=== PATIENT | female | born 1950 | race Caucasian/White ===

== ENCOUNTER 2023-08-05 10:44 | Outpatient (CLI) | payer MEDICARE, SELFPAY ==
--- NOTE | 2023-08-05 10:58 | EST_ITS ---
Patient Info Name: Nishi Pimentel Age: 73 years : 1950 Gender: Female Ht: 64 in Wt: 175 lbs BSA: 1.92 m2 HR: 68 bpm BP: 154 / 91 mmHg Heart Rhythm: Sinus Rhythm Exam Date: 08/05/2023 11:07 AM Exam Location: Echo Lab Patient Status: Outpatient Admit Date: 08/05/2023 Staff Ordering Physician: Karl Lang PA-C Attending Provider: Karl Lang PA-C Exercise Technologist: Rosario Owens CT Exercise Physician: Harley Santana DO Exam Type: CA stress test treadmill Study Info Indications R68.89 - A treadmill exercise stress test was performed. Summary 1. 1. Negative [place] exercise stress test for ischemic ST changes by ECG criteria. 2. 2. Poor functional capacity, achieving 3 METs of workload. 3. 3. Baseline hypertension with hypertensive response to exercise. 4. 4. Rapid HR response to exercise. 5. 5. Appropriate HR recovery at 1 minute post exercise. 6. 6. No imaging with stress testing. 7. 7. Patient informed of the above results. Protocol: [place] Stress ECG Details Stage: REST Duration (min): 1 min : 3 sec Speed (mph): 0.0 Grade (%): 0 HR (bpm): 70 SBP (mmHg): 154 DBP (mmHg): 91 METS: --- Stage: REST Duration (min): 14 min : 36 sec Speed (mph): 0.0 Grade (%): 0 HR (bpm): 75 SBP (mmHg): 154 DBP (mmHg): 91 METS: --- Stage: STAGE 1 Duration (min): 1 min : 0 sec Speed (mph): 1.7 Grade (%): 10 HR (bpm): 127 SBP (mmHg): 154 DBP (mmHg): 91 METS: --- Stage: STAGE 1 Duration (min): 1 min : 18 sec Speed (mph): 1.7 Grade (%): 10 HR (bpm): 137 SBP (mmHg): 154 DBP (mmHg): 91 METS: --- Stage: RECOVERY Duration (min): 0 min : 41 sec Speed (mph): 0.0 Grade (%): 0 HR (bpm): 135 SBP (mmHg): 154 DBP (mmHg): 91 METS: --- Stage: RECOVERY Duration (min): 1 min : 41 sec Speed (mph): 0.0 Grade (%): 0 HR (bpm): 93 SBP (mmHg): 210 DBP (mmHg): 107 METS: --- Stage: RECOVERY Duration (min): 2 min : 41 sec Speed (mph): 0.0 Grade (%): 0 HR (bpm): 85 SBP (mmHg): 210 DBP (mmHg): 107 METS: --- Stage: RECOVERY Duration (min): 3 min : 20 sec Speed (mph): 0.0 Grade (%): 0 HR (bpm): 79 SBP (mmHg): 184 DBP (mmHg): 99 METS: --- Rest HR: 75 bpm Peak HR: 142 bpm Rest Sys BP: 154 mmHg Peak Sys BP: 210 mmHg Max Pred HR: 148 bpm % Max Pred HR: 96 % Target HR: 126 bpm Max RPP: 29,820 bpm*mmHg Tyson Score: -1 BP Response: Patient exhibited a hypertensive response with stress Termination Reason: Reached target heart rate or workload Cardiac Symptoms: Shortness of breath Max ST Seg Deviation: 0.50 mm Total Time: 1 min : 18 sec Rest Rubio BP: 91 mmHg Peak Rubio BP: 107 mmHg Angina Score: None Total METS: 3.1 Resting ECG Sinus rhythm. Stress ECG No ST changes. Arrhythmias None. Report Signatures
== END 2023-08-05 10:45 | disposition home or self-care (01) ==
LOC: ANHCARD 10:45
PROVIDERS: PCP Family Medicine; Visit Provider Physician Assistant
DX: R68.89 Other general symptoms and signs (principal)
CPT/HCPCS: 93017